=== PATIENT | male | born 1950 | race African-American/Black ===

== ENCOUNTER 2022-06-14 15:35 | Emergency (ER) | payer MEDICARE, MEDICAID ==
[~2022-06-14] VITALS: Ht 172.7 cm; Wt 73.0 kg
[2022-06-14 15:46] VITALS: BP 191/94
[2022-06-14 18:07] LABS: BASOPHILS % 0.5 % (0.0-2.0); EOSINOPHILS % 0.7 % (0.0-5.0); HEMATOCRIT. 41.9 % (42.0-52.0); HEMOGLOBIN. 14.1 g/dL (14.0-18.0); LYMPHOCYTES % 20.5 % (20.0-50.0); MEAN CORPUSCULAR HEMOGLOBIN 31.8 pg (28.0-32.0); MEAN CORPUSCULAR VOLUME 94.5 fL (80.0-94.0); MEAN PLATELET VOLUME 6.5 fl (7.4-10.4); MONOCYTES % 13.4 % (2.0-8.0); NEUTROPHILS % 64.9 % (40.0-76.0); PLATELET 413 x1000/uL (130-400); RED BLOOD CELL COUNT 4.44 mill/uL (4.7-6.1); RED CELL DISTRIBUTION WIDTH 17.1 % (11.6-14.6)
[2022-06-14 18:14] LABS: CHLORIDE 104 mEq/L (98-107)
== END 2022-06-14 19:01 | disposition left against medical advice (07) ==
LOC: ER 15:35
DX: I10 Essential (primary) hypertension (principal); E11.9 Type 2 diabetes mellitus without complications
CPT/HCPCS: 36415; 80048; 85025; 99283